=== PATIENT | female | born 1930 | race Hispanic/Latino ===

== ENCOUNTER 2019-04-02 10:55 | Emergency (ER) | payer MEDICARE ==
[2019-04-02 11:34] VITALS: RESP 17; TEMP 97.3; BMI 26.8
--- NOTE | 2019-04-02 11:35 | ED PDOC ---
Arrival/HPI - General Time Seen by Provider: 04/02/19 11:05 - History of Present Illness Narrative History of Present Illness (Text): 04/02/19 11:05 Keely Ny is an 89 year old female, with a past medical history of hypertension, who presents to the emergency department complaining of back pain s/p mechanical fall 5 days ago. Patient informs slipping backwards and hitting her back against the stairs. Patient states she was unable to hold onto stairs due to belongings lining the bannisters. Patient has been ambulatory since fall but notes back pain. Denies head trauma or LOC. Patient denies other bodily injuries, head injury, loss of consciousness, headache, dizziness, focal weaknesses, bowel / urinary incontinence, nausea, dysuria, hematuria, or any other complaints. Time/Duration: < week (5 days ago ) Symptom Onset: Sudden Symptom Course: Unchanged Activities at Onset: Light Context: Slipped Past Medical History - Provider Review Nursing Documentation Reviewed: Yes - Infectious Disease Hx of Infectious Diseases: None - Cardiac Hx Cardiac Disorders: No - Pulmonary Hx Respiratory Disorders: No - Neurological Hx Neurological Disorder: No - HEENT Hx HEENT Disorder: No - Renal Hx Renal Disorder: No - Endocrine/Metabolic Hx Endocrine Disorders: No - Hematological/Oncological Hx Blood Disorders: No - Integumentary Hx Dermatological Disorder: No - Musculoskeletal/Rheumatological Hx Arthritis: Yes - Gastrointestinal Hx Gastrointestinal Disorders: Yes (CONSTIPATION,IBS) - Genitourinary/Gynecological Hx Genitourinary Disorders: Yes (UTI,RENAL CYST,) Hx Reproductive Disorders: No (H/O TOTAL HYSTERECTOMY) - Psychiatric Hx Psychophysiologic Disorder: No Hx Substance Use: No - Surgical History Hx Hysterectomy: Yes Hx Orthopedic Surgery: Yes Other/Comment: left elbow sx from fall 4 or 5 yrs ago hardware in and removed, surgical scar noted, r breast bx benign, left lower lobe lung nodule bx benign - Anesthesia Hx Anesthesia Reactions: No - Suicidal Assessment Feels Threatened In Home Enviroment: No Family/Social History - Physician Review Nursing Documentation Reviewed: Yes Family/Social History: Unknown Family HX Smoking Status: Never Smoked Hx Alcohol Use: No Hx Substance Use: No Allergies/Home Meds Allergies/Adverse Reactions: Allergies enviromental Allergy (Uncoded 04/02/19 11:30) CONGESTION Review of Systems - Review of Systems Constitutional: absent: Fatigue, Weight Change, Fevers ENT: absent: Hearing Changes Respiratory: absent: SOB, Cough, Sputum, Wheezing Cardiovascular: absent: Chest Pain, Palpitations, Edema, Calf Pain, LAO Gastrointestinal: absent: Abdominal Pain, Stool Changes, Constipation, Diarrhea, Nausea, Vomiting, Other (bowel incontinence) Genitourinary Female: absent: Dysuria, Frequency, Hematuria, Urine Output Changes, Other (urinary incontinence) Musculoskeletal: Back Pain. absent: Neck Pain Skin: absent: Rash Neurological: absent: Headache, Dizziness, Focal Weakness, Other (loss of consciousness) Psychiatric: absent: Anxiety, Depression Physical Exam Vital Signs Reviewed: Yes Temperature: Afebrile Blood Pressure: Normal Pulse: Regular Respiratory Rate: Normal Appearance: Positive for: Well-Appearing, Non-Toxic, Comfortable Pain Distress: None Mental Status: Positive for: Alert and Oriented X 3 - Systems Exam Head: Present: Atraumatic, Normocephalic Pupils: Present: PERRL Extroacular Muscles: Present: EOMI Conjunctiva: Present: Normal Mouth: Present: Moist Mucous Membranes Neck: Present: Normal Range of Motion Respiratory/Chest: Present: Clear to Auscultation, Good Air Exchange. No: Respiratory Distress, Accessory Muscle Use, Wheezes, Rales, Rhonchi Cardiovascular: Present: Regular Rate and Rhythm, Normal S1, S2. No: Murmurs, Gallop Abdomen: Present: Normal Bowel Sounds. No: Tenderness, Distention, Peritoneal Signs, Rebound, Guarding Back: Present: Other (tenderness to lumbar back) Upper Extremity: Present: Normal Inspection, Normal ROM, Neurovascularly Intact. No: Cyanosis, Edema Lower Extremity: Present: Normal Inspection, Normal ROM, Neurovascularly Intact. No: Edema Neurological: Present: GCS=15, CN II-XII Intact, Speech Normal, Gait Normal (ambulating around ED without issue) Skin: Present: Warm, Dry, Normal Color, Other (suspicious mole to right upper back (pt is aware and reports Dr. Armando is aware)). No: Rashes Psychiatric: Present: Alert, Oriented x 3, Normal Insight, Normal Concentration Medical Decision Making ED Course and Treatment: 04/02/19 11:05 Impression: Pt is an 89 year old female, with a past medical history of hypertension, who presents to the emergency department complaining of lower back pain s/p mechanical fall 5 days ago. Plan: -- Motrin -- X - Ray Dorsal Thoracic Spine -- X - Ray Lumbar Spine -- Reassess and disposition Prior Visits: Notes and results from previous visits were reviewed. Progress Notes: 04/02/19 11:[address] 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 There are no vertebral compression fractures 04/02/19 13:07 X-Ray L-Spine shows: IMPRESSION: No acute findings 04/02/19 16:32 Dr. Armando reports that he cannot come see patient. Reports that she needs to come to his office for her routine monitoring. Patient is neurologically intact and ambulating around the ED. Can be discharged to follow-up 04/02/19 16:59 - RAD Interpretation Radiology Orders: 04/02/19 11:25 LS SPINE WITH OBL > 18 YRS OLD [RAD] Stat 04/02/19 11:27 THORACIC SPINE [DORSAL (THORACIC) SPINE] [RAD] Stat - Scribe Statement The provider has reviewed the documentation as recorded by the Scribe Deric Khalil All medical record entries made by the Scribe were at my direction and personally dictated by me. I have reviewed the chart and agree that the record accurately reflects my personal performance of the history, physical exam, medical decision making, and the department course for this patient. I have also personally directed, reviewed, and agree with the discharge instructions and disposition. Disposition/Present on Arrival - Present on Arrival Any Indicators Present on Arrival: No History of DVT/PE: No History of Uncontrolled Diabetes: No Urinary Catheter: No History Surgical Site Infection Following: None - Disposition Have Diagnosis and Disposition been Completed?: Yes Diagnosis: Back pain, Fall Disposition: HOME/ ROUTINE Disposition Time: 16:33 Patient Plan: Discharge Condition: GOOD Discharge Instructions (ExitCare): Preventing Falls in the Older Adult, Upper Back Pain (DC) Additional Instructions: Follow-up with Dr. Armando within 2 days. Return to ED if condition worsens. Motrin or tylenol for pain. Referrals: Candice Armando MD [Primary Care Provider] - Follow up with primary Forms: [employer] (Indonesian)
--- NOTE | 2019-04-02 13:09 | RAD ---
Date of service: 04/02/2019 HISTORY: fall, back pain COMPARISON: No prior. TECHNIQUE: 2 views obtained. 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 There are no vertebral compression fractures DISC SPACES: Normal. SOFT TISSUES: Normal. OTHER FINDINGS: None. 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 There are no vertebral compression fractures
--- NOTE | 2019-04-02 13:10 | RAD ---
Date of service: 04/02/2019 PROCEDURE: Radiographs of the Lumbar Spine. HISTORY: fall, back pain COMPARISON: No prior. TECHNIQUE: Four views obtained. FINDINGS: BONES: Mild anterolisthesis of L4. 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 IMPRESSION: No acute findings
[2019-04-02 16:47] VITALS: BP 135/71; PULSE 76; O2SAT 100
== END 2019-04-02 16:57 | disposition home or self-care (01) ==
LOC: ED 10:55
DX: M54.9 Dorsalgia, unspecified (principal); W10.9XXA Fall (on) (from) unspecified stairs and steps, initial encounter

== ENCOUNTER 2019-04-04 08:44 | Outpatient (CLI) | payer MEDICARE | END 2019-04-04 08:45 | disposition home or self-care (01) | LOC: LAB 08:44 ==